=== PATIENT | male | born 1995 | race African-American/Black ===

== ENCOUNTER 2023-08-16 08:49 | Emergency (ER) | payer MEDICAID, SELFPAY ==
[2023-08-16 08:51] VITALS: BP 141/102; PULSE 79; RESP 12; TEMP 36.1; O2SAT 100; BMI 29.4
--- NOTE | 2023-08-16 09:01 | US_ITS ---
STUDY: SCROTUM ULTRASOUND REASON FOR EXAM: Male, 28 years old. Pain, swelling TECHNIQUE: Ultrasound evaluation of the scrotum was performed with color Doppler and static yu-scale imaging. COMPARISON: None. FINDINGS: RIGHT TESTICLE INTRATESTICULAR: There is a normal size of the right testicle. The right testicle measures 4.8 cm x 3.5 cm x 3.4 cm. There is a homogenous echotexture. There is normal arterial and normal venous vascularity. There is no demonstrated right testicular mass or cyst. EXTRATESTICULAR: The epididymis is slightly increased in size. The epididymis head measures 1.1 cm x 1.2 cm x 1.6 cm. There is normal vascularity of the epididymis. There is no demonstrated epididymal cystic structure. There is no demonstrated hydrocele. There is no demonstrated varicocele. There is no demonstrated extratesticular mass or cyst. LEFT TESTICLE INTRATESTICULAR: There is a normal size of the left testicle. The left testicle measures 4.3 cm x 2.9 cm x 2.6 cm. There is a homogenous echotexture. There is normal arterial and normal venous vascularity. There is no demonstrated left testicular mass or cyst. EXTRATESTICULAR: The epididymis is normal in size. The epididymis head measures 0.8 cm x 1.3 cm x 0.7 cm. There is normal vascularity of the epididymis. There is no demonstrated epididymal cystic structure. There is no demonstrated hydrocele. There is no demonstrated varicocele. There is no demonstrated extratesticular mass or cyst. US/Testicular with Arterial Flow IMPRESSION: Mild enlargement of the head of the epididymis. Normal blood flow. Electronically Signed: Leo Benson MD at 10:22 EST ,
--- NOTE | 2023-08-16 09:03 | EDS_ITS ---
HPI History of Present Illness Chief Complaint: Male Pain/Injury Informant: patient Pain Onset: Days Context: Gradual Onset Narrative Narrative: Patient presents secondary to testicular pain and swelling. He states late last week he developed dysuria and penile discharge. 2 days ago he developed right testicular swelling and pain. He went to an urgent care that day and was referred to the emergency room. He presents today for evaluation. He denies fever or chills. He states he has been more sleepy than normal. [facility] Medical History (Updated 08/16/23 @ 10:[address] Jessi Alicea MD) Urethritis Home Medications doxycycline monohydrate 100 mg capsule 100 mg PO BID #20 CAPSULES 08/16/23 [Rx Last Taken Unknown] naproxen 500 mg tablet (Naprosyn) 500 mg PO BID PRN pain #20 tabs 08/16/23 [Rx Last Taken Unknown] Allergy/AdvReac Type Severity Reaction Status Date / Time No Known Allergies Allergy Verified 08/16/23 08:50 Social History Smoking Status: Smoker, status unknown ROS ROS ED Constitutional Constitutional ED: Denies chills or fever(s) ENT ENT ED: Denies rhinorrhea or sore throat Cardiovascular Cardiovascular: Denies chest pain Respiratory/Chest Respiratory/Chest: Denies cough or dyspnea Gastrointestinal Gastrointestinal: Denies abdominal pain, nausea or vomiting Genitourinary Genitourinary ED: Reports dysuria and other Details: Penile discharge. Right testicular pain and swelling. Musculoskeletal Musculoskeletal: Denies back pain or extremity pain Integumentary Denies Abrasions or rash Neurologic Neurologic: Denies headache(s) or weakness Psychiatric Psychiatric: Denies anxiety or depression Allergic/Immunologic Allergic/Immunologic ED: Denies lip swelling or urticaria EXAM Physical Exam Const Vital Signs: 08/16/23 08:51 Temperature 97 F L Temperature Source Temporal Pulse Rate 79 Respiratory Rate 12 Blood Pressure 141/102 H Blood Pressure Mean 115 Pulse Ox 100 Oxygen Delivery Method Room Air Positive well nourished and well developed General Appearance ED: well developed HEENT Reports moist mucous membranes Eyes EOMs intact bilaterally Resp normal respiratory effort and clear to auscultation bilaterally Cardio regular rate and regular rhythm GI non-tender Palpation: soft Narrative: No rash or lesions noted. Mild clear discharge from the tip of the penis. No tenderness to the left scrotum. Tenderness noted to the right scrotum with firm palpable mass just posterior to the testicle. No skin changes. Extremity normal to inspection Neuro oriented x3 and moves all extremities Psych mental status grossly normal MDM MDM MDM Narrative Medical decision making narrative: Urinalysis obtained to evaluate for infection/hematuria. Urine for gonorrhea and chlamydia obtained. Testicular ultrasound obtained to evaluate for mass/blood flow. Patient given Naprosyn for pain. History & Record Review Discussion w/independent historian: Patient Lab Data Attestation: I reviewed the patient's lab results. Labs: Laboratory Results - last 24 hr 08/16/23 09:10 Urine Color Straw Urine Clarity Clear Urine pH 6.0 Ur Specific [place] 1.010 Urine Protein 30 H Urine Glucose (UA) 100 H Urine Ketones Negative Urine Occult Blood 10 H Urine Nitrite Negative Urine Bilirubin Negative Urine Urobilinogen 1 H Ur Leukocyte Esterase 25 H Urine RBC 0-5 SEEN Urine WBC 5-10 SEEN Ur Squamous Epith Cells 0-5 SEEN Urine Bacteria 0 SEEN Urine Mucus 0 SEEN Radiography Diagnostic Testing: Clinical Impression(s) from Imaging Studies Testicular Ultrasound 08/16/23 09:01 IMPRESSION: Mild enlargement of the head of the epididymis. Normal blood flow. Electronically Signed: Leo Benson MD at 10:22 EST , Treatment and Re-Evaluation Narrative: Urinalysis reveals 5-10 white cells with no bacteria. Urine for gonorrhea and chlamydia is still pending at this time. Testicular ultrasound reveals mild enlargement of the head of the epididymis with normal blood flow. Patient's exam findings and testing is consistent with epididymitis. Given he has had dysuria and discharge I do have high suspicion for gonorrhea or chlamydia. We will treat him with IM Rocephin and 10 days of doxycycline. I advised him that if his gonorrhea or chlamydia test is positive we will notify him so that he can notify partners, but he will already be treated with the co rrect antibiotics. He is referred to urology for follow-up as needed. Discharge Plan Triage Chief Complaint: Male Pain/Injury ED Provider: Alicea,Jessi Dx/Rx/DC Orders Clinical Impression: Epididymitis, right Instructions: ED Epididymitis Prescriptions: New doxycycline monohydrate 100 mg capsule 100 mg PO BID Qty: 20 0RF naproxen [Naprosyn] 500 mg tablet 500 mg PO BID PRN (Reason: pain) Qty: 20 0RF Primary Care Provider: Care Physician,No Primary Referrals: Silverio Donaldson MD [Med Staff - Active Staff] - 1 Week if not improving Care Physician,No Primary [Primary Care Provider] - Disposition Disposition: Home, Self Care
[2023-08-16] MEDS: Naproxen 500 MG Tablet PO (09:17)
[2023-08-16 09:22] LABS: Bacteria 0 SEEN /hpf (None Seen); Mucous, Urine 0 SEEN /hpf (<or=2+)
[2023-08-16 09:32] LABS: Color, Urine Straw (Yellow); Glucose, Dipstick 100 mg/dl (Normal); Ketone-Dipstick Negative (Negative); Leukocyte Esterase-Dipstick 25 /ul (Negative); Nitrite-Dipstick Negative (Negative); Occult Blood-Urine 10 /ul (Negative); Protein-Dipstick 30 mg/dl (Negative); Urine Bilirubin Dipstick Negative (Negative); Urine Clarity Clear (Clear); Urine Urobilinogen 1 mg/dl (Normal)
[2023-08-16 09:44] LABS: Red Blood Cells-Urine 0-5 SEEN /hpf (0-5); Squamous Epithelial Cells - UA 0-5 SEEN /hpf (0-5); White Blood Cells 5-10 SEEN /hpf (0-5)
[2023-08-16] MEDS: Ceftriaxone 500 MG Vial 250 MG IM (11:00)
[2023-08-16] MEDS: Doxycycline 100 MG CAPSULE PO (11:00)
== END 2023-08-16 11:21 | disposition home or self-care (01) ==
PROVIDERS: Emergency Provider Emergency Medicine; Visit Provider Emergency Medicine
DX: N45.1 Epididymitis (principal); Z11.3 Encounter for screening for infections with a predominantly sexual mode of transmission; F17.200 Nicotine dependence, unspecified, uncomplicated
CPT/HCPCS: 76870; 81001; 87491; 87591; 93976; 96372; 99282